=== PATIENT | female | born 1970 | race Caucasian/White ===

== ENCOUNTER → 2021-11-17 | Day surgery (SDC) | payer OTHER ==
[~2021-11-17] VITALS: Ht 167.6 cm; Wt 88.5 kg
[~2021-11-17] MED LIST: AMLODIPINE BESY10 MG PO; ASPIRIN EC81 M1 PO; COZAAR50 MG PO; HCTZ25 MG PO; JARDIANCE25 MG PO; LOVAZA1 GM PO; METFORMIN HCL1000 MG PO; PRAVASTATIN SOD40 MG PO; TRULICITY1.5 MG/0.5 IJ; VENLAFAXINE H37.5 M1 PO
[2021-11-17 11:55] LABS: HCG (URINE) SCREEN NEGATIVE (NEGATIVE)
[2021-11-17 12:10] LABS: HCT 49.5 % (37.0-47.0); HGB 16.9 g/dl (12.5-16.0); MCH 30.6 pg (25.0-31.0); MCHC 34.1 g/dL (32.0-36.0); MCV 89.5 fL (78.0-100.0); MPV 9.9 fL (6.0-9.5); RBC 5.53 M/uL (4.20-5.40); RDW 13.1 % (11.5-14.0); WBC 6.8 K/uL (4.0-10.5)
== END | disposition home or self-care (01) ==
LOC: FAS 11:34
PROVIDERS: Obstetrics & Gynecology
DX: N95.0 Postmenopausal bleeding (principal); E28.2 Polycystic ovarian syndrome; K21.9 Gastro-esophageal reflux disease without esophagitis; E78.5 Hyperlipidemia, unspecified; I10 Essential (primary) hypertension; G47.30 Sleep apnea, unspecified; E11.9 Type 2 diabetes mellitus without complications; Z88.0 Allergy status to penicillin; Z79.82 Long term (current) use of aspirin; Z79.84 Long term (current) use of oral hypoglycemic drugs; Z87.891 Personal history of nicotine dependence; E66.9 Obesity, unspecified; Z68.31 Body mass index [BMI] 31.0-31.9, adult
CPT/HCPCS: 36415; 84703; 86850; 86900; 86901; 88305; J1885; J2250; J2405; J2704; J3010; J7120